=== PATIENT | male | born 1985 | race Caucasian/White ===

== ENCOUNTER 2019-05-26 09:41 | Emergency (ER) | payer OTHER ==
[2019-05-26] MEDS ORDERED: GLUCOPHAGE PO (09:49)
[2019-05-26] MEDS ORDERED: GLUCOTROL 5M5 MG/TAB (09:50)
[2019-05-26] MEDS ORDERED: NORCO 325 MG-51 TA1 PO (11:19)
[2019-05-26 11:44] VITALS: BP 147/90
== END 2019-05-26 11:26 | disposition home or self-care (01) ==
LOC: ED 09:41
DX: S63.501A Unspecified sprain of right wrist, initial encounter (principal); E11.9 Type 2 diabetes mellitus without complications; Z79.84 Long term (current) use of oral hypoglycemic drugs; V49.9XXA Car occupant (driver) (passenger) injured in unspecified traffic accident, initial encounter
CPT/HCPCS: 90715; J3010